=== PATIENT | female | born 1995 | race Caucasian/White ===

== ENCOUNTER 2018-12-19 07:51 | Emergency (ER) | payer SELFPAY ==
--- NOTE | 2018-12-19 09:30 | ER Document Report ---
ED General - General Chief Complaint: Allergic Reaction Stated Complaint: POSSIBLE ALLERGIC REACTION Time Seen by Provider: 12/19/18 09:05 TRAVEL OUTSIDE OF THE [place] IN LAST 30 DAYS: No - Related Data Allergies/Adverse Reactions: amoxicillin [Amoxicillin] Allergy (Intermediate, Verified 12/19/18 09:22) Hives Penicillins Allergy (Verified 12/19/18 09:22) Past Medical History - Social History Smoking Status: Current Every Day Smoker Chew tobacco use (# tins/day): No Drug Abuse: None Family History: Reviewed & Not Pertinent Patient has suicidal ideation: No Patient has homicidal ideation: No Pulmonary Medical History: Reports: Hx Bronchitis Psychiatric Medical History: Reports: Hx Anxiety, Hx Bipolar Disorder, Hx Depression - Anxiety - Immunizations Immunizations up to date: Yes Hx Diphtheria, Pertussis, Tetanus Vaccination: Yes Physical Exam - Vital signs Vitals: Temp Pulse Resp BP Pulse Ox 98.4 F 110 H 18 149/82 H 98 12/19/18 07:56 12/19/18 07:56 12/19/18 07:56 12/19/18 07:56 12/19/18 07:56 - Notes Notes: Patient presents emergncy department for possible allergic reaction. She reports using a hair dye last night which she sees used many times in the past for years without complications. Shortly after using the dye she developed some redness and swelling of her face and generalized redness throughout with itching. Some brief episode of chest pain and shortness of breath but no nausea vomiting or abdominal pain. She took a dose of Benadryl last night with improvement in symptoms and another dose this morning he will has some mild fac ial swelling. Denies any difficulty swallowing no chest pain or shortness of breath today and no nausea or vomiting. There is no new contact history obtainable no recent antibiotics Past medical history is unremarkable last menstrual period was mid November. She smokes but does not drink. Family history is noncontributory. PHYSICAL EXAMINATION: Vital signs were noted GENERAL: Well-appearing, well-nourished and in no acute distress. HEAD: Atraumatic, normocephalic. EYES: Pupils equal round and reactive to light, extraocular movements intact, sclera anicteric, conjunctiva are normal. Is have some mild swelling of the upper eye lids minimal redness frontal area just at the hairline and do not appreciate any lesions in the scalp ENT: nares patent, oropharynx clear without exudates. Moist mucous membranes. There is no swelling of the face tongue or lips there is a patent airway and no stridor NECK: Normal range of motion, supple without lymphadenopathy LUNGS: Breath sounds clear to auscultation bilaterally and equal. No wheezes rales or rhonchi. HEART: Regular rate and rhythm without murmurs ABDOMEN: Soft, nontender, normoactive bowel sounds. No guarding, no rebound. No masses appreciated. EXTREMITIES: Normal range of motion, no pitting or edema. No cyanosis. NEUROLOGICAL: No focal neurological deficits. Moves all extremities spontaneously and on command. PSYCH: Normal mood, normal affect. SKIN: Warm, Dry, normal turgor, there is no rashes on the extremities or trunk Course - Re-evaluation Re-evalutation: 12/19/18 09:35 Patient presents with allergic reaction doubt that is related to the hair dye since she had systemic symptoms. 6 well can be discharged home Note dictation was done using voice recognition software there may be some unintentional grammatical errors - Vital Signs Vital signs: Temp Pulse Resp BP Pulse Ox 98.4 F 110 H 18 149/82 H 98 12/19/18 07:56 12/19/18 07:56 12/19/18 07:56 12/19/18 07:56 12/19/18 07:56 Discharge - Discharge Clinical Impression: Elevated blood pressure reading Allergic reaction Qualifiers: Encounter type: initial encounter Qualified Code(s): T78.40XA - Allergy, unspecified, initial encounter Condition: Stable Disposition: HOME, SELF-CARE Instructions: Acute Allergic Reaction ([facility]) Additional Instructions: Take an [id number] antihistamine like Claritin or Joanna daily for 3 days then as needed for rash or itching for severe itching you can also take Benadryl but this may cause some drowsiness Please review the discharge instructions Return to the ED if you get worse in a follow-up with your family doctor Your blood pressure was elevated today needs to be rechecked again in 1 to 2 weeks to determine if you need to be on medication Follow-up in clinic in 2 to 3 days if not better otherwise in 2 weeks to recheck your blood pressure Prescriptions: Prednisone [Deltasone 20 mg Tablet] 20 mg PO DAILY #9 tablet Forms: Elevated Blood Pressure
[2018-12-19] MEDS ORDERED: PREDNISONE 20 MG TABLET PO ONE (09:44)
[2018-12-19 09:58] VITALS: BP 128/90
== END 2018-12-19 09:57 | disposition home or self-care (01) ==
LOC: ER 07:51
DX: T78.40XA Allergy, unspecified, initial encounter (principal); R22.0 Localized swelling, mass and lump, head; L53.9 Erythematous condition, unspecified; L29.9 Pruritus, unspecified; X58.XXXA Exposure to other specified factors, initial encounter; F17.200 Nicotine dependence, unspecified, uncomplicated; Z88.0 Allergy status to penicillin
CPT/HCPCS: 99283; J7512